=== PATIENT | female | born 1945 | race American Indian/Alaskan Native ===

== ENCOUNTER → 2018-11-25 | Outpatient (CLI) | payer MEDICARE | END | disposition home or self-care (01) | LOC: RAD 08:50 | DX: Z12.31 Encounter for screening mammogram for malignant neoplasm of breast (principal) ==

== ENCOUNTER 2019-01-04 16:45 | Outpatient (CLI) | payer MEDICARE | END 2019-01-04 16:46 | disposition home or self-care (01) | LOC: RAD 16:45 ==